=== PATIENT | male | born 1940 | race Caucasian/White ===

== ENCOUNTER → 2016-07-12 | Outpatient (CLI) | payer OTHER ==
[2016-07-12 12:45] LABS: ALB/GLOB RATIO 0.9 (0.9-2); ALKALINE PHOSPHATASE 59 U/L (45-117); ALT/SGPT 48 U/L (12-78); AST/SGOT 29 U/L (15-37); BLOOD UREA NITROGEN 18 mg/dl (7-18); BUN/CREATININE RATIO 17.6 (10-20); CALCIUM 9.2 mg/dl (8.5-10.1); CARBON DIOXIDE 31 mmol/L (21-32); CHLORIDE 106 mmol/L (98-107); GLUCOSE 89 mg/dl (70-99); POTASSIUM 3.8 mmol/L (3.5-5.1); SODIUM 143 mmol/L (136-145)
== END | disposition home or self-care (01) ==
LOC: C.LABPVFM 08:02
PROVIDERS: ATTEND Family Medicine
DX: E87.6 Hypokalemia (principal); E78.5 Hyperlipidemia, unspecified; H57.8 Other specified disorders of eye and adnexa; I10 Essential (primary) hypertension

== ENCOUNTER → 2017-01-16 | Outpatient (CLI) | payer OTHER ==
[2017-01-16 13:03] LABS: AST/SGOT 26 U/L (15-37); BLOOD UREA NITROGEN 20 mg/dl (7-18); BUN/CREATININE RATIO 19.8 (10-20); CALCIUM 9.3 mg/dl (8.5-10.1); CARBON DIOXIDE 28 mmol/L (21-32); CHLORIDE 103 mmol/L (98-107); CREATININE 1.01 mg/dl (0.60-1.40); GLUCOSE 96 mg/dl (70-99); POTASSIUM 3.7 mmol/L (3.5-5.1); SODIUM 138 mmol/L (136-145)
[2017-01-16 13:08] LABS: ALB/GLOB RATIO 0.9 (0.9-2); ALKALINE PHOSPHATASE 67 U/L (45-117); ALT/SGPT 52 U/L (12-78)
[2017-01-16 13:21] LABS: CHOLESTEROL/HDL RATIO 3.8
== END | disposition home or self-care (01) ==
LOC: C.LABPVFM 08:46
PROVIDERS: ATTEND Family Medicine
DX: Z12.5 Encounter for screening for malignant neoplasm of prostate (principal); E87.6 Hypokalemia; I10 Essential (primary) hypertension; E78.5 Hyperlipidemia, unspecified; E55.9 Vitamin D deficiency, unspecified; H57.8 Other specified disorders of eye and adnexa

== ENCOUNTER → 2017-01-24 | Outpatient (CLI) | payer OTHER ==
[~2017-01-24] MED LIST: GADAVIST IV PRN
--- NOTE | 2017-01-24 18:38 | DIAGNOSTIC IMAGING REPORT ---
BRAIN COMBO HISTORY: 76 years-old Male MENINGIOMA follow-up study in a patient with meningioma for several years. Patient is currently asymptomatic. COMPARISON: Brain MRI 08/02/2007 TECHNIQUE: Multiplanar multisequence MRI of the brain was obtained both with and without the use of 9 mL Gadavist. FINDINGS: The large field view general administrator localizer images demonstrate no gross abnormality. There is no restricted diffusion. The midline structures including the corpus callosum, brainstem, optic chiasm, pineal and pituitary gland are unremarkable the sagittal T1 series. No cerebellar tonsillar herniation. Mild degenerative changes of the imaged cervical spine. Mild atrophy without acute intracranial hemorrhage, midline shift or abnormal extra-axial collections. A few scattered areas of punctate T2/FLAIR prolongation again seen within the subcortical and periventricular white matter of the cerebral hemispheres bilaterally. Circumscribed ovoid avidly enhancing T1 isointense dural based lesion adjacent to the inferior aspect of the left cerebellar hemisphere redemonstrated measuring up to 11 x 4 x 9 mm nicely seen on image 17 series 9. This appears unchanged from comparison study 08/02/2007. No associated significant mass effect or cerebellar edema. No invasion into the adjacent structures. No additional abnormal intra-axial or extra-axial enhancement. The major flow voids at the level of the skull base appear patent. Orbits appear symmetric and are unremarkable. Mastoid air cells are clear. Mild to moderate mucoperiosteal thickening of the maxillary sinuses with mild ethmoid sinus disease. Scalp, calvarium and soft tissues are unremarkable. IMPRESSION: 1. Unchanged ovoid dural-based avidly enhancing lesion adjacent to the inferior aspect of the left cerebellar hemisphere measuring up to 11 mm again demonstrates imaging characteristics most compatible with a meningioma. 2. Mild atrophy with chronic microvascular ischemic changes. 3. Mild to moderate paranasal sinus disease. The above report was generated using voice recognition software. It may contain grammatical, syntax or spelling errors. Electronically signed by: Fabian Lynne M.D. 01/24/2017 6:36 PM Dictated Date/Time: 01/24/2017 6:27 PM
== END | disposition home or self-care (01) ==
LOC: C.MRI 17:27
PROVIDERS: ATTEND Family Medicine
DX: D32.9 Benign neoplasm of meninges, unspecified (principal); J34.89 Other specified disorders of nose and nasal sinuses

== ENCOUNTER 2022-08-05 19:48 | Observation (INO) ==
[2022-08-05] MEDS ORDERED: ACETAMINOPHEN 1,000 MG/100 ML VIAL IV STA (20:07)
[2022-08-05] MEDS: SODIUM CHLORIDE 0.9% 1000ML 1,000 ML IV SCH ×2 (20:29→21:13)
--- NOTE | 2022-08-05 20:29 | Emergency Department Note ---
Impression & Plan Febrile illness, acute, Cough productive of yellow sputum, Acute Lyme disease, Elevated LFTs ED Provider Note INFORMANT: Patient ED PROVIDER(S): Chaka Mckeon MD CHIEF COMPLAINT: Fever and dehydration PLAN: Disposition: Admitted Condition: Good Outpatient prescription management: none Referral: None MEDICAL DECISION MAKING: Patient presented complaining of fever and dehydration. He work-up initiated including blood cultures. Chest x-ray shows mild congestion but no lobar infiltrate. He was requiring some mild supplemental oxygen. The patient found have an unremarkable CBC. Chemistry panel did reveal elevation of LFTs. Patient's cardiac troponin is mildly elevated. Lyme testing is positive. Patient was treated with IV Rocephin. He was hydrated. Additional tickborne labs sent. Consultation was made with Dr. Jain of the [facility] service. Case was discussed and diagnostics were reviewed. Patient was evaluated in the ER admitted for further management. Discussed with shared services and outsourcing manager After review of the information above and other included data, I feel the patient requires admission. Triage Nursing notes reviewed and agree them. Vital Signs: reviewed and remarkable for mild hypoxia Prior /Outside records reviewed: none Differential diagnosis: Sepsis, UTI, pneumonia, metabolic, electrolyte abnormalities, cardiac sources, intracerebral event, toxicologic, neurologic, as well as other pathologies. Diagnostics, as interpreted by me: ECG: Twelve-lead ECG reveals a sinus rhythm with sinus arrhythmia at 97 bpm. First-degree AV block. No ST elevation or depression. Cardiac Monitoring: Cardiac monitoring ordered by me: The patient was placed on continuous cardiac monitoring and observed. It revealed a normal sinus rhythm at 89 beats per minute without ectopy or evidence of dysrhythmia. Medical decision rules: none Imaging studies: Chest x-ray. Findings: A chest x-ray was performed and revealed no pneumothorax, effusion, infiltrate, pulmonary edema, free air under the diaphragm, or wide mediastinum. Impression: No acute disease. HPI: The patient is a 82 year old male who presents to the Emergency Room with complaints of dehydration and fever. This started 3 days ago and is worsening. The patient also notes the following associated symptoms, nausea, fatigue, dizziness, diarrhea. The patient has taken ibuprofen this morning for relieving factors. Current pain is rated as 6/10. Pt denies LOC, headache, diaphoresis, visual changes, neck pain, chest pain, breathing difficulties, vomiting, abdominal pain, back pain, melena, hematochezia, urinary symptoms, numbness, tick bites, focal weakness, lymphadenopathy, rash, or other complaints. PAST MEDICAL HISTORY: See Below, hypertension, asthma PAST SURGICAL HISTORY: See Below, SOCIAL HISTORY: See Below, former smoker HOME MEDICATIONS: See Below ALLERGIES: See Below VITALS: See Below PHYSICAL EXAMINATION: GENERAL: Awake, alert, mildly ill-appearing, in no distress HENT: Normocephalic, atraumatic. Oropharynx unremarkable. EYES: Normal conjunctiva. Sclera non-icteric. NECK: Inspection normal. Non-tender. Supple. No nuchal rigidity. FROM. No masses. RESPIRATORY: Clear to auscultation. No wheezes. No rales. Normal respiratory effort. CARDIAC: Borderline tachycardic rate. Normal rhythm. No murmurs. No rubs. Extremities warm and well perfused. Pulses equal. No JVD. GI: Soft, non-distended. No tenderness to palpation. No rebound or guarding. No masses. MUSCULOSKELETAL: Atraumatic. Chest examination reveals no tenderness. The back is symmetrical on inspection without obvious abnormality. There is no CVA tenderness to palpation. No joint edema. LOWER EXTREMITIES: Calves are equal size bilaterally and non-tender. No edema. No discoloration. NEURO: Normal sensorium. No sensory or motor deficits noted. SKIN: No rash or jaundice noted. Past Med/Surg History Medical History Abnormal finding on imaging Arthritis of knee Left inguinal hernia Tick bite Surgical History H/O hernia repair Hx of cholecystectomy Family History Mother Throat cancer Hypertension Father Myocardial infarction Denies family history of Ovarian cancer Prostate cancer Breast cancer Colorectal cancer Social History Smoking Status: Never smoker Tobacco Type: Smokeless Tobacco (Dip or Chew) Second Hand Exposure: No; Do You Dip or Chew Tobacco: Yes; Hx Alcohol Use: No Hx Substance Use: No Preferred Language: Serbian Communication Ability: Effective Visual Impairment: No Limitations Hearing Ability: Normal [employer] Reading Teacher Required: No Beliefs That Will Affect Care: None marital status: Current Living Situation: Family current occupational status: retired How many Children do You have: 2 Other Information That Helps Us Care for You: No Feels Safe at Home: Yes Safety Concerns: Feels Safe At This Time Childhood Exposure to Second-Hand Smoke: No Diet: regular caffeine: No Dental Care, Regularly: No Physical Activity Frequency: 3-4 Times per Week Seatbelt Use: always Sunscreen Use: No Assistive Devices: None Allergies Allergies Allergy/AdvReac Type Severity Reaction Status Date / Time lisinopril AdvReac Severe angioedema Verified 08/05/22 23:07 Home Meds Home Medications Medication Instructions Recorded Confirmed cholecalciferol (vitamin D3) 50 2,000 units PO DAILY 12/02/18 08/05/22 mcg (2,000 unit) capsule potassium chloride 20 mEq 20 meq PO DAILY 08/05/22 08/05/22 tablet,extended release valacyclovir 1 gram tablet 1,000 mg PO DAILY 08/05/22 08/05/22 (Valtrex) Previous Rx's Medication Instructions Recorded albuterol sulfate 90 mcg/actuation 2 puff inhalation Q4H PRN 01/03/22 aerosol inhaler shortness of breath or wheezing #18 grams amlodipine 5 mg tablet (Norvasc) 5 mg PO DAILY #90 tabs 04/03/22 fluticasone 100 mcg-salmeterol 50 1 inh inhalation ONCE #180 ea 06/09/22 mcg/dose blistr powdr for inhalation (Advair Diskus) baclofen 5 mg tablet 5 mg PO BID PRN muscle spasm #20 06/18/22 tabs atorvastatin 20 mg tablet 20 mg PO DAILY #90 tabs 06/30/22 Results & Data (ED) Vital Signs Vital Signs - 24 hr 08/05/22 19:49 08/05/22 20:13 08/05/22 20:10 Temperature 38 C H Temperature Source Temporal Artery Scan Pulse Rate 107 H 99 H Pulse Rate from SpO2 Sensor Pulse Rhythm Regular Pulse Strength Normal Respiratory Rate 20 Respiratory Effort / Characteristics Non-Labored Spontaneous Respiratory Depth Normal Respiratory Pattern Regular Blood Pressure 108/72 Blood Pressure Mean 84 Blood Pressure Position Sitting Pulse Oximetry 90 91 Oxygen Delivery Method Room Air Room Air Sepsis Recent Fever Within 48 Hours Yes Sepsis New/Unexplained Change in Mental Status N/A Sepsis Action Taken by Nursing No Action Required 08/05/22 21:00 08/05/22 20:11 08/05/22 21:00 Temperature 38 C H Temperature Source Oral Pulse Rate 101 H 89 Pulse Rate from SpO2 Sensor 102 H Pulse Rhythm Pulse Strength Respiratory Rate 18 20 Respiratory Effort / Characteristics Respiratory Depth Respiratory Pattern Blood Pressure 123/94 Blood Pressure Mean 103 Blood Pressure Position Pulse Oximetry 92 90 Oxygen Delivery Method Sepsis Recent Fever Within 48 Hours Sepsis New/Unexplained Change in Mental Status Sepsis Action Taken by Nursing 08/05/22 21:30 08/05/22 21:45 08/05/22 21:00 Temperature 38.0 C H Temperature Source Pulse Rate 86 86 Pulse Rate from SpO2 Sensor 87 Pulse Rhythm Pulse Strength Respiratory Rate 22 19 Respiratory Effort / Characteristics Respiratory Depth Respiratory Pattern Blood Pressure 130/86 Blood Pressure Mean 100 Blood Pressure Position Pulse Oximetry 93 92 Oxygen Delivery Method Sepsis Recent Fever Within 48 Hours Sepsis New/Unexplained Change in Mental Status Sepsis Action Taken by Nursing Laboratory Data 08/05/22 20:15 08/05/22 20:15 Lab Results 08/05/22 08/05/22 08/05/22 Range/Units 20:10 20:15 20:15 WBC 7.32 (4.8-10.8) K/ul RBC 5.18 (4.70-6.10) M/uL Hgb 15.6 (14.0-18.0) g/dl Hct 44.8 (42.0-52.0) % MCV 86.5 (80.0-100.0) fL MCH 30.1 (25.0-34.0) pg MCHC 34.8 (32.0-36.0) g/dL RDW Std Deviation 47.8 H (36.4-46.3) fL RDW Coeff of Mauri 15.2 H (11.5-14.5) % Plt Count 135 (130-400) K/uL MPV 10.2 (9.4-12.4) fL Immature Gran % (Auto) 0.5 % Neut % (Auto) 83.7 % Lymph % (Auto) 4.9 % [place] % (Auto) 9.7 % Eos % (Auto) 0.8 % Baso % (Auto) 0.4 % Neut # (Auto) 6.12 (1.40-6.50) K/uL Lymph # (Auto) 0.36 L (1.2-3.4) K/uL [place] # (Auto) 0.71 H (0.11-0.59) K/uL Eos # (Auto) 0.06 (0-0.50) K/uL Baso # (Auto) 0.03 (0-0.2) K/uL Immature Gran # (Auto) 0.04 (0.01-0.20) K/uL Sodium 131 L (136-145) mmol/L Potassium 3.7 (3.5-5.1) mmol/L Chloride 100 (98-107) mmol/L Carbon Dioxide 23 (21-32) mmol/L Anion Gap 8 (3-11) BUN 22 (6-23) mg/dl Creatinine 1.16 (0.6-1.4) mg/dl Est Cr Clr Drug Dosing 55.7 ml/min Est GFR ( Amer) 68.6 ml/min Est GFR (Non-Af Amer) 59.1 ml/min BUN/Creatinine Ratio 19.0 (10-20) Glucose 120 H (70-99(Fasting)) mg/dl Lactate (0.4-2.0) mmol/L Calcium 9.0 (8.6-10.3) mg/dl Magnesium 1.7 (1.7-2.4) mg/dl Total Bilirubin 1.5 H (0.2-1.0) mg/dl Direct Bilirubin 0.4 H (0-0.2) mg/dl AST 108 H (13-39) U/L ALT 109 H (7-52) U/L Alkaline Phosphatase 75 (34-104) U/L Troponin I High Sens 20.6 H (0-20) pg/ml Total Protein 7.4 (6.0-8.3) gm/dl Albumin 3.9 (3.4-5.0) gm/dl Procalcitonin (0-0.5) ng/ml Urine Color Urine Appearance (Clear) Urine pH (4.5-7.5) Ur Specific [place]ick[place] (1.000-1.030) Urine Protein (Negative) Urine Glucose (UA) (Negative) Urine Ketones (Negative) Urine Blood (Negative) Urine Nitrite (Negative) Urine Bilirubin (Negative) Urine Urobilinogen (Negative) Ur Leukocyte Esterase (Negative) Urine WBC (Auto) (0-5) /hpf Urine RBC (Auto) (0-4) /hpf U Hyaline Cast (Auto) (0-5) /lpf U Epithel Cells (Auto) (0-5) /lpf Urine Bacteria (Auto) (Negative) WBC Casts (0) /lpf Adenovirus (PCR) Not Detected (NotDetected) Anaplasma Smear Babesia Smear B. pertussis DNA (PCR) Not Detected (NotDetected) B.parapertussis DNA PCR Not Detected (NotDetected) Lyme Disease IgG Ab (Negative) Lyme Disease IgM Ab (Negative) C. pneumoniae DNA (PCR) Not Detected (NotDetected) Coronavirus OC43 (PCR) Not Detected (NotDetected) Coronavirus HKU1 (PCR) Not Detected (NotDetected) Coronavirus 229E (PCR) Not Detected (NotDetected) SARS-CoV-2 (PCR) Not Detected (NotDetected) Coronavirus NL63 (PCR) Not Detected (NotDetected) Human Metapneumovir PCR Not Detected (NotDetected) Influenza Type A (PCR) Not Detected (NotDetected) Influenza Type B (PCR) Not Detected (NotDetected) M. pneumoniae (PCR) Not Detected (NotDetected) Parainfluenza 1 (PCR) Not Detected (NotDetected) Parainfluenza 2 (PCR) Not Detected (NotDetected) Parainfluenza 3 (PCR) Not Detected (NotDetected) Parainfluenza 4 (PCR) Not Detected (NotDetected) RSV (PCR) Not Detected (NotDetected) Entero/Rhino (PCR) Not Detected (NotDetected) 08/05/22 08/05/22 08/05/22 Range/Units 20:15 20:15 20:15 WBC (4.8-10.8) K/ul RBC (4.70-6.10) M/uL Hgb (14.0-18.0) g/dl Hct (42.0-52.0) % MCV (80.0-100.0) fL MCH (25.0-34.0) pg MCHC (32.0-36.0) g/dL RDW Std Deviation (36.4-46.3) fL RDW Coeff of Mauri (11.5-14.5) % Plt Count (130-400) K/uL MPV (9.4-12.4) fL Immature Gran % (Auto) % Neut % (Auto) % Lymph % (Auto) % [place] % (Auto) % Eos % (Auto) % Baso % (Auto) % Neut # (Auto) (1.40-6.50) K/uL Lymph # (Auto) (1.2-3.4) K/uL [place] # (Auto) (0.11-0.59) K/uL Eos # (Auto) (0-0.50) K/uL Baso # (Auto) (0-0.2) K/uL Immature Gran # (Auto) (0.01-0.20) K/uL Sodium (136-145) mmol/L Potassium (3.5-5.1) mmol/L Chloride (98-107) mmol/L Carbon Dioxide (21-32) mmol/L Anion Gap (3-11) BUN (6-23) mg/dl Creatinine (0.6-1.4) mg/dl Est Cr Clr Drug Dosing ml/min Est GFR ( Amer) ml/min Est GFR (Non-Af Amer) ml/min BUN/Creatinine Ratio (10-20) Glucose (70-99(Fasting)) mg/dl Lactate 1.1 (0.4-2.0) mmol/L Calcium (8.6-10.3) mg/dl Magnesium (1.7-2.4) mg/dl Total Bilirubin (0.2-1.0) mg/dl Direct Bilirubin (0-0.2) mg/dl AST (13-39) U/L ALT (7-52) U/L Alkaline Phosphatase (34-104) U/L Troponin I High Sens (0-20) pg/ml Total Protein (6.0-8.3) gm/dl Albumin (3.4-5.0) gm/dl Procalcitonin 0.30 (0-0.5) ng/ml Urine Color Urine Appearance (Clear) Urine pH (4.5-7.5) Ur Specific [place] (1.000-1.030) Urine Protein (Negative) Urine Glucose (UA) (Negative) Urine Ketones (Negative) Urine Blood (Negative) Urine Nitrite (Negative) Urine Bilirubin (Negative) Urine Urobilinogen (Negative) Ur Leukocyte Esterase (Negative) Urine WBC (Auto) (0-5) /hpf Urine RBC (Auto) (0-4) /hpf U Hyaline Cast (Auto) (0-5) /lpf U Epithel Cells (Auto) (0-5) /lpf Urine Bacteria (Auto) (Negative) WBC Casts (0) /lpf Adenovirus (PCR) (NotDetected) Anaplasma Smear Babesia Smear B. pertussis DNA (PCR) (NotDetected) B.parapertussis DNA PCR (NotDetected) Lyme Disease IgG Ab Negative (Negative) Lyme Disease IgM Ab Positive A (Negative) C. pneumoniae DNA (PCR) (NotDetected) Coronavirus OC43 (PCR) (NotDetected) Coronavirus HKU1 (PCR) (NotDetected) Coronavirus 229E (PCR) (NotDetected) SARS-CoV-2 (PCR) (NotDetected) Coronavirus NL63 (PCR) (NotDetected) Human Metapneumovir PCR (NotDetected) Influenza Type A (PCR) (NotDetected) Influenza Type B (PCR) (NotDetected) M. pneumoniae (PCR) (NotDetected) Parainfluenza 1 (PCR) (NotDetected) Parainfluenza 2 (PCR) (NotDetected) Parainfluenza 3 (PCR) (NotDetected) Parainfluenza 4 (PCR) (NotDetected) RSV (PCR) (NotDetected) Entero/Rhino (PCR) (NotDetected) 08/05/22 08/05/22 Range/Units 20:15 20:30 WBC (4.8-10.8) K/ul RBC (4.70-6.10) M/uL Hgb (14.0-18.0) g/dl Hct (42.0-52.0) % MCV (80.0-100.0) fL MCH (25.0-34.0) pg MCHC (32.0-36.0) g/dL RDW Std Deviation (36.4-46.3) fL RDW Coeff of Mauri (11.5-14.5) % Plt Count (130-400) K/uL MPV (9.4-12.4) fL Immature Gran % (Auto) % Neut % (Auto) % Lymph % (Auto) % [place] % (Auto) % Eos % (Auto) % Baso % (Auto) % Neut # (Auto) (1.40-6.50) K/uL Lymph # (Auto) (1.2-3.4) K/uL [place] # (Auto) (0.11-0.59) K/uL Eos # (Auto) (0-0.50) K/uL Baso # (Auto) (0-0.2) K/uL Immature Gran # (Auto) (0.01-0.20) K/uL Sodium (136-145) mmol/L Potassium (3.5-5.1) mmol/L Chloride (98-107) mmol/L Carbon Dioxide (21-32) mmol/L Anion Gap (3-11) BUN (6-23) mg/dl Creatinine (0.6-1.4) mg/dl Est Cr Clr Drug Dosing ml/min Est GFR ( Amer) ml/min Est GFR (Non-Af Amer) ml/min BUN/Creatinine Ratio (10-20) Glucose (70-99(Fasting)) mg/dl Lactate (0.4-2.0) mmol/L Calcium (8.6-10.3) mg/dl Magnesium (1.7-2.4) mg/dl Total Bilirubin (0.2-1.0) mg/dl Direct Bilirubin (0-0.2) mg/dl AST (13-39) U/L ALT (7-52) U/L Alkaline Phosphatase (34-104) U/L Troponin I High Sens (0-20) pg/ml Total Protein (6.0-8.3) gm/dl Albumin (3.4-5.0) gm/dl Procalcitonin (0-0.5) ng/ml Urine Color Dark Yellow Urine Appearance Cloudy A (Clear) Urine pH 5.5 (4.5-7.5) Ur Specific [place] 1.030 (1.000-1.030) Urine Protein 2+ H (Negative) Urine Glucose (UA) Negative (Negative) Urine Ketones Trace H (Negative) Urine Blood Trace H (Negative) Urine Nitrite Positive A (Negative) Urine Bilirubin 1+ H (Negative) Urine Urobilinogen Negative (Negative) Ur Leukocyte Esterase Trace H (Negative) Urine WBC (Auto) 5-10 H (0-5) /hpf Urine RBC (Auto) 0-4 (0-4) /hpf U Hyaline Cast (Auto) 10-30 H (0-5) /lpf U Epithel Cells (Auto) 10-20 H (0-5) /lpf Urine Bacteria (Auto) Negative (Negative) WBC Casts 1-5 H (0) /lpf Adenovirus (PCR) (NotDetected) Anaplasma Smear See Comment Babesia Smear See Comment B. pertussis DNA (PCR) (NotDetected) B.parapertussis DNA PCR (NotDetected) Lyme Disease IgG Ab (Negative) Lyme Disease IgM Ab (Negative) C. pneumoniae DNA (PCR) (NotDetected) Coronavirus OC43 (PCR) (NotDetected) Coronavirus HKU1 (PCR) (NotDetected) Coronavirus 229E (PCR) (NotDetected) SARS-CoV-2 (PCR) (NotDetected) Coronavirus NL63 (PCR) (NotDetected) Human Metapneumovir PCR (NotDetected) Influenza Type A (PCR) (NotDetected) Influenza Type B (PCR) (NotDetected) M. pneumoniae (PCR) (NotDetected) Parainfluenza 1 (PCR) (NotDetected) Parainfluenza 2 (PCR) (NotDetected) Parainfluenza 3 (PCR) (NotDetected) Parainfluenza 4 (PCR) (NotDetected) RSV (PCR) (NotDetected) Entero/Rhino (PCR) (NotDetected) Administered Medications Doxycycline Hyclate 100 mg/ (Dextrose) 110 mls @ 50 mls/hr IV ONE STA Stop: 08/06/22 01:14 Last Admin: 08/05/22 23:24 Dose: 50 mls/hr Documented By: CLAUDIA Discontinued Medications Sodium Chloride (Nss 1000ml) 1,000 mls @ 999 mls/hr IV .[id number] TERI Stop: 08/05/22 22:15 Last Infusion: 08/05/22 22:42 Dose: 0 mls/hr Documented By: Admin: 08/05/22 21:13 Dose: 999 mls/hr Documented By: Infusion: 08/05/22 21:13 Dose: 999 mls/hr Documented By: Admin: 08/05/22 20:29 Dose: 999 mls/hr Documented By: CLAUDIA Acetaminophen (Ofirmev) 1,000 mg in 100 mls @ 400 mls/hr IV NOW STA Stop: 08/05/22 20:21 Last Infusion: 08/05/22 21:05 Dose: 0 mls/hr Documented By: Admin: 08/05/22 20:28 Dose: 400 mls/hr Documented By: CLAUDIA Ceftriaxone Sodium (Rocephin) 2,000 mg in 70 mls @ 140 mls/hr IV NOW STA Stop: 08/05/22 21:50 Last Infusion: 08/05/22 23:28 Dose: 0 mls/hr Documented By: Admin: 08/05/22 21:51 Dose: 140 mls/hr Documented By: CLAUDIA Imaging Data Radiologist's Impression: Gallbladder Ultrasound 08/05/22 21:21 Exam(s): US GALLBLADDER EXAM: US Abdomen Limited, Gallbladder CLINICAL HISTORY: Reason for exam: elevated LFTs, fever. TECHNIQUE: Real-time ultrasound of the right upper quadrant with image documentation. COMPARISON: No relevant prior studies available. FINDINGS: Liver: Hepatomegaly with increased parenchymal echogenicity. No focal lesion. Gallbladder: Cholecystectomy. Common bile duct: No biliary dilatation. Common bile duct 6 mm. Pancreas: Pancreas suboptimally characterized. Right kidney: Right kidney measures 12.8 cm. Mild pelviectasis without roya hydronephrosis. IMPRESSION: 1. No acute findings. 2. Hepatomegaly with echogenic parenchyma suggesting steatosis or other hepatocellular disease. Electronically signed by: Mary Munguia M.D. 08/05/22 23:42 PM Discharge Plan Visit Data Chief Complaint: Dehydration Stated Complaint: DEHYDRATED,DIZZY,FEVER ED Provider: Chaka Mckeon Discharge Problem: Febrile illness, acute, Cough productive of yellow sputum, Acute Lyme disease, Elevated LFTs Patient Disposition: Admitted As Inpatient Discharge Instructions Interventions: ED Discharge Assessment Last Done: 08/05/22 23:34
[2022-08-05 20:34] LABS: Basophils # (auto) 0.03 K/uL (0-0.2); Basophils % (auto) 0.4 %; Eosinophils # (auto) 0.06 K/uL (0-0.50); Eosinophils % (auto) 0.8 %; Hematocrit (blood only) 44.8 % (42.0-52.0); Hemoglobin 15.6 g/dl (14.0-18.0); Immature Granulocytes # (auto) 0.04 K/uL (0.01-0.20); Immature Granulocytes % (auto) 0.5 %; Lymphocytes # (auto) 0.36 K/uL (1.2-3.4); Lymphocytes % (auto) 4.9 %; Mean Corpuscular Hemoglobin 30.1 pg (25.0-34.0); Mean Corpuscular Hgb Conc 34.8 g/dL (32.0-36.0); Mean Corpuscular Volume 86.5 fL (80.0-100.0); Mean Platelet Volume 10.2 fL (9.4-12.4); Monocytes # (auto) 0.71 K/uL (0.11-0.59); Monocytes % (auto) 9.7 %; Neutrophils # (auto) 6.12 K/uL (1.40-6.50); Neutrophils % (auto) 83.7 %; Platelet Count 135 K/uL (130-400); RDW Coefficient of Variation 15.2 % (11.5-14.5); RDW Standard Deviation 47.8 fL (36.4-46.3); Red Blood Count 5.18 M/uL (4.70-6.10); White Blood Count 7.32 K/ul (4.8-10.8)
[2022-08-05 20:47] LABS: Albumin Level 3.9 gm/dl (3.4-5.0); Bilirubin Direct 0.4 mg/dl (0-0.2); Bilirubin,Total 1.5 mg/dl (0.2-1.0); Creatinine Clr Calc Pharmacy 55.7 ml/min; Est GFR (African American) 68.6 ml/min; Est GFR (Non-African American) 59.1 ml/min; Magnesium 1.7 mg/dl (1.7-2.4); Potassium 3.7 mmol/L (3.5-5.1); Total Protein 7.4 gm/dl (6.0-8.3)
[2022-08-05 20:48] LABS: Appearance Urine Cloudy (Clear); Bacteria Urine Automated Negative (Negative); Blood Urine Trace (Negative); Color Urine Dark Yellow; Glucose Urine UA Negative (Negative); Ketones Urine Trace (Negative); Leukocyte Esterase Urine Trace (Negative); Nitrite Urine Positive (Negative); Protein Urine 2+ (Negative); Urobilinogen Urine Negative (Negative); pH Urine 5.5 (4.5-7.5)
[2022-08-05 20:49] LABS: Bilirubin Urine 1+ (Negative)
[2022-08-05 20:55] LABS: Troponin I High Sensitivity 20.6 pg/ml (0-20)
[2022-08-05 21:09] LABS: RBC Urine Automated 0-4 /hpf (0-4)
[2022-08-05 21:14] LABS: Lyme Ab IgG w/WB Rflx Negative (Negative)
[2022-08-05 21:15] LABS: Adenovirus PCR Not Detected (NotDetected); Bordetella parapertussis PCR Not Detected (NotDetected); Bordetella pertussis PCR Not Detected (NotDetected); Chlamydia pneumoniae PCR Not Detected (NotDetected); Coronavirus 229E PCR Not Detected (NotDetected); Coronavirus CoV-2 (COVID19)PCR Not Detected (NotDetected); Coronavirus HKU1 PCR Not Detected (NotDetected); Coronavirus NL63 PCR Not Detected (NotDetected); Coronavirus OC43PCR Not Detected (NotDetected); Human Metapneumovirus PCR Not Detected (NotDetected); Influenza A PCR Not Detected (NotDetected); Influenza B PCR Not Detected (NotDetected); Mycoplasma pneumoniae PCR Not Detected (NotDetected); Parainfluenza Virus 1 PCR Not Detected (NotDetected); Parainfluenza Virus 2 PCR Not Detected (NotDetected); Parainfluenza Virus 3 PCR Not Detected (NotDetected); Parainfluenza Virus 4 PCR Not Detected (NotDetected); Respiratory Syncytial VirusPCR Not Detected (NotDetected); Rhinovirus/Enterovirus PCR Not Detected (NotDetected)
[2022-08-05 21:19] LABS: Lyme Ab IgM w/WB Rflx Positive (Negative)
[2022-08-05] MEDS ORDERED: cefTRIAXone SODIUM 2,000 MG/70 ML BAG IV STA (21:21)
--- NOTE | 2022-08-05 22:40 | History & Physical Report ---
Date of Service August 05, 2022 Assessment & Plan (1) Febrile illness, acute: Plan: 82yo Male with PMH BPH anxiety HTN asthma AAA HLD here for fever. Fever -fever ongoing last 3-4 days, current temp 38 C -received ceftriaxone in ED -received 2L IVF in ED -CXR per my read left sided small pleural effusion -WBC procal normal -lyme IGM positive, other tick labs pending -continue PRN tylenol ibuprofen for fever control -Bcx pending -trend CBC -continue ceftriaxone doxycycline at this time. -recheck CXR in am Elevated LFTs -denies abd pain -total bili 1.5, AST 108, ALD 109 -gallbladder US completed read pending -trend CMP Elevated troponin -trop 20.6, likely exertional -repeat trop pending -EKG pending HTN -continue amlodipine HLD -continue atorvastatin FENa: regular Code Status: DNR/intubate DVT PPX: ambulatory PT/OT: ordered Dispo: med/surg Anabell Jesus D.O. PGY 3, FCM (2) Dyslipidemia: (3) Hypertension: (4) Pneumonia: (5) Lyme disease: History of Present Illness Chief Complaint: Fever Primary Care Provider: Wanda Oates MD 82yo Male with PMH BPH anxiety HTN asthma AAA HLD here for fever. Patient states he was encourage to go to ED by his grandchildren. States he had an elevated temp ongoing the last 3-4 days, cannot recall sick contacts, also had diarrhea cough vomiting and fatigue. He denies SOB, pain, constipation, urinary symptoms. Has had regular appetite eating drinking normally taking his regular medications. Has been managing symptoms with ibuprofen and juice. He denies history of heart or lung conditions. Discussed code status with patient, he states if his heart stops just let him pass, patient ok with intubation. POA is son Pedro Pablo. Allergies Allergy/AdvReac Type Severity Reaction Status Date / Time lisinopril AdvReac Severe angioedema Verified 08/05/22 23:07 Home Medications Medication Instructions Recorded Confirmed Type cholecalciferol (vitamin D3) 50 2,000 units PO DAILY 12/02/18 08/05/22 History mcg (2,000 unit) capsule albuterol sulfate 90 mcg/actuation 2 puff inhalation Q4H PRN 01/03/22 08/05/22 Rx aerosol inhaler shortness of breath or wheezing #18 grams amlodipine 5 mg tablet (Norvasc) 5 mg PO DAILY #90 tabs 04/03/22 08/05/22 Rx fluticasone 100 mcg-salmeterol 50 1 inh inhalation ONCE #180 ea 06/09/22 08/05/22 Rx mcg/dose blistr powdr for inhalation (Advair Diskus) baclofen 5 mg tablet 5 mg PO BID PRN muscle spasm #20 06/18/22 08/05/22 Rx tabs atorvastatin 20 mg tablet 20 mg PO DAILY #90 tabs 06/30/22 08/05/22 Rx potassium chloride 20 mEq 20 meq PO DAILY 08/05/22 08/05/22 History tablet,extended release valacyclovir 1 gram tablet 1,000 mg PO DAILY 08/05/22 08/05/22 History (Valtrex) Past Med/Surg History Medical History Abnormal finding on imaging Arthritis of knee Left inguinal hernia Tick bite Surgical History H/O hernia repair Hx of cholecystectomy Family History Mother Throat cancer Hypertension Father Myocardial infarction Denies family history of Ovarian cancer Prostate cancer Breast cancer Colorectal cancer Social History Smoking Status: Never smoker Tobacco Type: Smokeless Tobacco (Dip or Chew) Second Hand Exposure: No; Do You Dip or Chew Tobacco: Yes; Hx Alcohol Use: No Hx Substance Use: No Preferred Language: Citizen Of [place] Communication Ability: Effective Visual Impairment: No Limitations Hearing Ability: Normal Magnetometer Operator Required: No Beliefs That Will Affect Care: None marital status: Current Living Situation: Family current occupational status: retired How many Children do You have: 2 Other Information That Helps Us Care for You: No Feels Safe at Home: Yes Safety Concerns: Feels Safe At This Time Childhood Exposure to Second-Hand Smoke: No Diet: regular caffeine: No Dental Care, Regularly: No Physical Activity Frequency: 3-4 Times per Week Seatbelt Use: always Sunscreen Use: No Assistive Devices: None Physical Exam Constitutional: well developed, well nourished, cooperative and comfortable Eyes: PERRL, conjunctivae normal, anicteric sclerae ENMT: external ear and nose normal, oropharynx normal Neck: trachea midline, no thyromegaly Respiratory: normal respiratory effort, lungs clear to auscultation Cardiovascular: Rate/Rhythm: regular rate and regular rhythm Extremities: no edema Gastrointestinal (Abdomen): Inspection/Auscultation: + abdomen distended Percussion/Palpation: abdomen soft; abdomen nontender Skin: no rashes, warm and dry Results & Data Results & Data Vital Signs (Past 12 Hours) Vital Signs Temp Pulse Resp BP Pulse Ox O2 Del Method 08/05/22 21:00 89 20 123/94 90 08/05/22 20:11 101 H 18 92 08/05/22 21:00 38 C H 08/05/22 20:10 99 H 08/05/22 20:13 91 Room Air 08/05/22 19:49 38 C H 107 H 20 108/72 90 Room Air Supervising Physician Co-Signing Physician Notes Patient seen and examined, chart reviewed, case discussed with Dr. Jesus and I agree with the assessment and plan as above. In brief, patient is an 82yo male with history of HTN, Asthma, HLP and AAA presenting with fever, rash, diarrhea, cough, vomiting and fatigue Mildy hypoxic in the ER at 88% on room air - placed on supplemental O2 with improvement. On exam he is well in appearance SKin - small round rash on LE HEENT - MMM Heart -+S1/S2, regular, no m/r/g Lungs _ CTA Abd - soft, NT/ND Ext - warm, well perfused Labs and images reviewed +Lyme Assessment/Plan -Ceftriaxone and Doxycycline -Tylenol and Motrin as needed -Remainder of plan as above Resident Activity Tracking Resident Involvement: Resident Care Provided Care Provided: Adult Hospital Medicine
[2022-08-05] MEDS ORDERED: IBUPROFEN 600 MG TAB PO PRN (23:02)
[2022-08-05] MEDS ORDERED: DOXYCYCLINE HYCLATE 100 MG in DEXTROSE 5% 100 ML IV STA (23:03)
--- NOTE | 2022-08-05 23:43 | Ultrasound Report ---
Exam(s): US GALLBLADDER EXAM: US Abdomen Limited, Gallbladder CLINICAL HISTORY: Reason for exam: elevated LFTs, fever. TECHNIQUE: Real-time ultrasound of the right upper quadrant with image documentation. COMPARISON: No relevant prior studies available. FINDINGS: Liver: Hepatomegaly with increased parenchymal echogenicity. No focal lesion. Gallbladder: Cholecystectomy. Common bile duct: No biliary dilatation. Common bile duct 6 mm. Pancreas: Pancreas suboptimally characterized. Right kidney: Right kidney measures 12.8 cm. Mild pelviectasis without roya hydronephrosis. IMPRESSION: 1. No acute findings. 2. Hepatomegaly with echogenic parenchyma suggesting steatosis or other hepatocellular disease. Electronically signed by: Mary Munguia M.D. 08/05/22 23:42 PM
[2022-08-05] MEDS ORDERED: POLYETHYLENE (MIRALAX) 17 GM PACK PO PRN (23:52)
[2022-08-05] MEDS ORDERED: ALBUTEROL HFA 8 GM INHALER INH PRN (23:52)
[2022-08-05] MEDS ORDERED: ACETAMINOPHEN 325 MG TAB PO PRN (23:52)
--- NOTE | 2022-08-06 04:28 | Billing Data ---
Date of Service August 05, 2022 Coding Level of Care Code 86086 INT INP/OBS CARE
--- NOTE | 2022-08-06 07:12 | XRay Report ---
SINGLE VIEW CHEST CLINICAL HISTORY: Sepsis. FINDINGS: An AP, portable, upright chest radiograph is obtained. No prior studies are available for c omparison at the time of dictation. The examination is degraded by portable technique and apical lord otic positioning. The heart is enlarged noting atherosclerotic calcification of the thoracic aorta. T he pulmonary vasculature is noncongested. The lungs and pleural spaces are clear noting bibasilar sca rring/atelectasis. No pneumothorax is seen. The skeletal structures are osteopenic. There are chronic /healed right-sided rib fractures. IMPRESSION: Cardiomegaly with no acute cardiopulmonary abnormality. ACT 112: Negative or not required by law. Electronically signed by: Bneedict Lovelace M.D. 08/06/2022 7:11 AM
[2022-08-06 07:32] LABS: Hematocrit (blood only) 41.6 % (42.0-52.0); Hemoglobin 14.2 g/dl (14.0-18.0); Mean Corpuscular Hemoglobin 29.8 pg (25.0-34.0); Mean Corpuscular Hgb Conc 34.1 g/dL (32.0-36.0); Mean Corpuscular Volume 87.2 fL (80.0-100.0); Mean Platelet Volume 10.1 fL (9.4-12.4); Platelet Count 123 K/uL (130-400); RDW Coefficient of Variation 15.2 % (11.5-14.5); Red Blood Count 4.77 M/uL (4.70-6.10); White Blood Count 6.15 K/ul (4.8-10.8)
[2022-08-06 07:48] LABS: Albumin Globulin Ratio 1.1 (0.9-2); Albumin Level 3.3 gm/dl (3.4-5.0); BUN Creatinine Ratio 15.9 (10-20); Bilirubin,Total 1.1 mg/dl (0.2-1.0); Creatinine Clr Calc Pharmacy 80.1 ml/min; Est GFR (Non-African American) 81.1 ml/min; Globulin 2.9 gm/dl (2.5-4.0); Potassium 3.6 mmol/L (3.5-5.1); Total Protein 6.2 gm/dl (6.0-8.3)
[2022-08-06] MEDS: amLODIPine BESYLATE 5 MG TAB PO SCH (08:55)
[2022-08-06] MEDS: FLUTICASONE/VILANTEROL 100/25MCG 14 PUFFS/INHALER INH SCH (08:55)
[2022-08-06] MEDS: ATORVASTATIN 20 MG TAB PO SCH (08:55)
--- NOTE | 2022-08-06 09:17 | XRay Report ---
TWO VIEW CHEST CLINICAL HISTORY: Pleural effusion. FINDINGS: PA and lateral chest radiographs are compared to study dated 08/05/2022. The heart is enlarge d noting atherosclerotic calcification of the thoracic aorta. The pulmonary vasculature is nondistend ed congested. There is bibasilar scarring/atelectasis. No airspace consolidation or pleural disease i s identified. There is no pneumothorax. The skeletal structures are osteopenic. The bony thorax appea rs intact. Degenerative change is noted in the thoracic spine. IMPRESSION: Cardiomegaly with no active disease in the chest. ACT 112: Negative or not required by law. Electronically signed by: Benedict Lovelace M.D. 08/06/2022 9:16 AM
[2022-08-06] MEDS ORDERED: DOXYCYCLINE HYCLATE 100 MG in DEXTROSE 5% 100 ML IV SCH (12:00)
--- NOTE | 2022-08-06 12:50 | Hospitalist Progress Note ---
Date of Service August 06, 2022 Assessment & Plan (1) Febrile illness, acute: Plan: Acute/unstable - moderate risk -fever ongoing last 3-4 days, current temp 37.7 C -received ceftriaxone and 2L of IVF in ED -CXR w/ cardiomegaly but no acute disease -CBC reviewed this AM-WBC normal -lyme IgM positive, WB pending -highly suspicious that his fever is secondary to acute lyme with borderline plt count of 128 and mild transaminitis -continue PRN tylenol ibuprofen for fever control -Bcx ordered/pending -Empiric abx coverage with Rocephin + Doxycycline (2) Abnormal urinalysis: Plan: Acute/stable - low to moderate risk -UA abnormal, cloudy with nitrites and trace LE, 5-10 WBCs, no bacteria -Urine culture ordered/pending -Covered with current antibiotics on board (Rocephin) -Asymptomatic (3) Elevated LFTs: Plan: Acute/unstable - moderate risk -denies abd pain -total bili 1.5, AST 108, ALD 109 -gallbladder US completed - no acute findings, hepatomegaly d/t ?steatosis or other hepatocellular disease -CMP reviewed this AM - LFTs essentially unchanged (4) Elevated troponin: Plan: Elevated troponin - low risk -trop 20.6, likely represents demand ischemia -repeat trop 20.8 -EKG sinus arrythmia, L axis deviation, 1st degree AV block -he is CP free, trop will not be further trended (5) Dyslipidemia: Plan: -continue atorvastatin (6) Hypertension: Plan: -continue amlodipine Plan Nothing ordered for VTE ppx, but pt is ambulatory and not overweight w/o active malignancy, therefore low risk. Would defer especially if he is going to be discharge home tomorrow and has a borderline platelet count. Repeat CBC and CMP has been ordered for tomorrow AM. If he is afebrile tomorrow, could consider d/c with PCP follow up on 2 week course of Doxycycline. Plan has been d/w Dr. Olsen. Admission and Anticipated Discharge Date Admission Date: August 05, 2022 Supervising Physician Co-Signing Physician Notes The patient was not seen by me. The chart was reviewed. Case discussed with BERTHA Cole. Agree with assessment and plan Subjective Patient seen on daily rounds this morning. He has no complaints. Had low grade fever and shakes overnight. No headache, chest pain, dyspnea, cough, or gu symptoms. He denies n/v/d. Physical Exam Physical Exam: GENERAL: 82 yo well-developed, well-nourished M. AAOx4. Nontoxic appearing. NAD. LUNGS: Clear to auscultation bilaterally w/o W/R/R. CARDIOVASCULAR: Regular rate and rhythm. ABDOMEN: Soft, non-tender and non-distended. BS normoactive x 4 quad. EXTREMITIES: No edema. Non-tender. Peripheral pulses +2/4. NEUROLOGIC: No focal neurological deficits. CN II-XII grossly intact. Results & Data Results & Data Vital Signs (Past 12 Hours) Vital Signs Temp Pulse Resp BP Pulse Ox O2 Del Method 08/06/22 07:39 37.7 C H 82 18 129/74 92 Room Air Laboratory Results 08/06/22 06:52 08/06/22 06:52 PG Care Time/CCT Total # of Minutes Spent Total Time Spent with Patient: Total time spent is greater than 50% in coordination of care (as documented) at patient's floor/unit and/or counseling patient: Coding Level of Care Code 96941 SUB INP/OBS CARE 3/50MIN Diagnoses Febrile illness, acute R50.9 Abnormal urinalysis R82.90 Elevated LFTs R79.89 Elevated troponin R77.8 Dyslipidemia E78.5 Hypertension I10
[2022-08-06] MEDS: DOXYCYCLINE HYCLATE 100 MG CAP PO SCH (20:57)
[2022-08-06] MEDS ORDERED: cefTRIAXone SODIUM 2,000 MG in DEXTROSE 5% 50 ML IV SCH (22:00)
[2022-08-07 06:44] LABS: Hematocrit (blood only) 41.6 % (42.0-52.0); Hemoglobin 14.3 g/dl (14.0-18.0); Mean Corpuscular Hgb Conc 34.4 g/dL (32.0-36.0); Mean Corpuscular Volume 87.4 fL (80.0-100.0); Mean Platelet Volume 10.4 fL (9.4-12.4); Platelet Count 131 K/uL (130-400); RDW Coefficient of Variation 15.2 % (11.5-14.5); RDW Standard Deviation 49.1 fL (36.4-46.3); Red Blood Count 4.76 M/uL (4.70-6.10); White Blood Count 6.15 K/ul (4.8-10.8)
[2022-08-07 06:46] LABS: Albumin Globulin Ratio 1.1 (0.9-2); Albumin Level 3.3 gm/dl (3.4-5.0); Bilirubin,Total 0.9 mg/dl (0.2-1.0); Calcium 8.4 mg/dl (8.6-10.3); Est GFR (African American) 88.4 ml/min; Est GFR (Non-African American) 76.3 ml/min; Globulin 3.1 gm/dl (2.5-4.0); Magnesium 1.7 mg/dl (1.7-2.4); Potassium 3.8 mmol/L (3.5-5.1); Total Protein 6.4 gm/dl (6.0-8.3)
[2022-08-07 07:29] LABS: Basophils # (auto) 0.04 K/uL (0-0.2); Basophils % (auto) 0.7 %; Echinocytes 1+; Eosinophils # (auto) 0.37 K/uL (0-0.50); Immature Granulocytes # (auto) 0.03 K/uL (0.01-0.20); Immature Granulocytes % (auto) 0.5 %; Lymphocytes # (auto) 1.35 K/uL (1.2-3.4); Monocytes # (auto) 1.12 K/uL (0.11-0.59); Monocytes % (auto) 18.2 %; Neutrophils # (auto) 3.24 K/uL (1.40-6.50); Neutrophils % (auto) 52.6 %
[2022-08-07] MEDS: FLUTICASONE/VILANTEROL 100/25MCG 14 PUFFS/INHALER INH SCH (08:14)
[2022-08-07] MEDS: DOXYCYCLINE HYCLATE 100 MG CAP PO SCH (08:14)
[2022-08-07] MEDS: amLODIPine BESYLATE 5 MG TAB PO SCH (08:14)
[2022-08-07] MEDS: ATORVASTATIN 20 MG TAB PO SCH (08:15)
--- NOTE | 2022-08-07 10:57 | Discharge Summary ---
Date of Service August 07, 2022 Admission HPI Per Admitting Provider 82yo Male with PMH BPH anxiety HTN asthma AAA HLD here for fever. Patient states he was encourage to go to ED by his grandchildren. States he had an elevated temp ongoing the last 3-4 days, cannot recall sick contacts, also had diarrhea cough vomiting and fatigue. He denies SOB, pain, constipation, urinary symptoms. Has had regular appetite eating drinking normally taking his regular medications. Has been managing symptoms with ibuprofen and juice. He denies history of heart or lung conditions. Discussed code status with patient, he states if his heart stops just let him pass, patient ok with intubation. POA is son Pedro Pablo. Principal Diagnosis Suspected acute Lyme infection Discharge Exam General-alert and oriented x3, no fevers, no chills HEENT-head atraumatic and normocephalic, pupils equal and reactive to light, extraocular muscles intact Neck-no lymphadenopathy or thyromegaly, trachea midline Chest-clear to auscultation percussion. No rales wheezing or rhonchi Cardiac-regular rate and rhythm, normal S1 and S2 Abdomen-normal bowel sounds, nontender, no hepatosplenomegaly Extremities-raised, tender, erythematous area right lateral calf from what appears to be a tick bite Neuro-cranial nerves II through XII intact, motor and sensory function within normal limits, strength symmetrical , no focal deficits Psych-normal affect, normal mood Discharge Data Allergies Allergy/AdvReac Type Severity Reaction Status Date / Time lisinopril AdvReac Severe angioedema Verified 08/05/22 23:07 Consultations 08/05/22 22:23 ED Decision to Admit Stat Ordered Studies 08/05/22 21:21 US gallbladder Stat Hospital Course (1) Febrile illness, acute: Suspected acute Lyme disease with IgM positivity. He is afebrile and stable. He will be discharged home on oral doxycycline therapy for 4 weeks . Blood cultures are negative. (2) Abnormal urinalysis: Urine culture pending. Minimal symptoms at this time. He received Rocephin while hospitalized (3) Elevated LFTs: Most likely due to an acute infectious process. Expect this to normalize with time. Gallbladder US - no acute findings, hepatomegaly d/t ?steatosis or other hepatocellular disease (4) Elevated troponin: Mild. No acute EKG changes. No chest pain. No evidence of acute coronary syndrome. (5) Dyslipidemia: Stable. Continue atorvastatin (6) Hypertension: Stable. Continue amlodipine Plan Home today, August 07, on oral doxycycline therapy for 4 weeks Total Time Total Time Spent Total Time Spent (In Minutes): 40 minutes Discharge Plan Discharge Items Patient Disposition: Home - Self-Care Reason For Visit: FEVER Discharge Diagnosis: Suspected acute Lyme disease Activity: Resume your previous activity Non-emergency contact: Primary Care Provider Call non-emergency contact if: your symptoms worsen Follow-up/Referrals: Wanda Oates MD [Primary Care Provider] - Diet: Regular and Heart Healthy Addtl Attending Provider Instructions: Take doxycycline 100 mg twice a day for 4 weeks Pending Studies at Discharge: No Stand-Alone Forms: My [facility] [employer], Smoking Cessation Medications and DC Order Prescriptions: New doxycycline hyclate 100 mg Capsule 100 mg PO BID Qty: 56 0RF Continued albuterol sulfate 90 mcg/actuation HFA aerosol inhaler 2 puff inhalation Q4H PRN (Reason: shortness of breath or wheezing) Qty: 18 0RF amlodipine [Norvasc] 5 mg tablet 5 mg PO DAILY Qty: 90 1RF fluticasone propion-salmeterol [Advair Diskus] 100-50 mcg/dose blister with device 1 inh inhalation ONCE Qty: 180 3RF baclofen 5 mg tablet 5 mg PO BID PRN (Reason: muscle spasm) Qty: 20 2RF atorvastatin 20 mg tablet 20 mg PO DAILY Qty: 90 3RF cholecalciferol (vitamin D3) 2,000 unit capsule 2,000 units PO DAILY valacyclovir [Valtrex] 1 gram tablet 1,000 mg PO DAILY potassium chloride 20 mEq tablet extended release 20 meq PO DAILY Discharge Orders: Discharge Order (Routine); Ordered 08/07/22 Ordered By: Demetri Olsen Admission Data Admit Date/Time: 08/05/22 22:46 Attending Provider: Demetri Olsen Admit Provider: Anabell Jesus Primary Care Provider: Wanda Oates Other Providers: Palak Jain Coding Level of Care Code 99946 INP/OBS DISCH >30 MIN Diagnoses Febrile illness, acute R50.9 Abnormal urinalysis R82.90 Elevated LFTs R79.89 Elevated troponin R77.8 Dyslipidemia E78.5 Hypertension I10
--- NOTE | 2022-08-08 06:55 | Electrocardiogram Report ---
Test Reason : Blood Pressure : / mmHG Vent. Rate : 097 BPM Atrial Rate : 097 BPM P-R Int : 254 ms QRS Dur : 086 ms QT Int : 332 ms P-R-T Axes : 006 -44 029 degrees QTc Int : 421 ms Sinus rhythm with 1st degree A-V block Premature atrial complexes Left axis deviation Abnormal ECG When compared with ECG of 23-MAY-1996 11:35, IA interval has increased Premature atrial complexes are now Present Confirmed by Luís Herron ([id number]) on 08/08/2022 6:55:24 AM Referred By: REFERRED SELF Confirmed By:Luís Herron
[2022-08-10 17:57] LABS: Babesia microti DNA Not Detected (Not Detected); Q Fever IgG, Phase I NEGATIVE; Q Fever Phase I IgM Antibody NEGATIVE; Q Fever Phase II IgG Antibody NEGATIVE; Q Fever Phase II IgM Antibody NEGATIVE; R. typhi IgG Ab NOT DETECTED; R. typhi IgM Ab NOT DETECTED; RMSF IgG Ab NOT DETECTED; RMSF IgM Ab NOT DETECTED
== END 2022-08-07 14:07 | disposition home or self-care (01) ==
LOC: ED 19:48 → 3N 19:48 → SUATTDRO 22:46 → 3N 23:34